=== PATIENT | female | born 1965 | race Hispanic/Latino ===

== ENCOUNTER 2017-07-11 22:06 | Observation (INO) | payer BC ==
--- NOTE | 2017-07-11 22:39 | ED PDOC ---
Arrival/HPI - General Chief Complaint: Chest Pain Time Seen by Provider: 07/11/17 22:19 Historian: Patient - History of Present Illness Narrative History of Present Illness (Text): 07/11/17 22:20 52 year old female, whose history includes Lupus, CO, cardiac stent, fibromyalgia, COPD, and asthma, presents to the Emergency department complaining of left arm pain that began 21 hours ago and left chest tightness with associated left hand numbness that began 3 hours ago. Patient also complains of dry mouth. Patient initially thought symptoms were a Lupus flareup yesterday but when symptoms persisted, patient decided to seek Emergency department evaluation. Patient reports taking Aspirin 81mg this morning. Patient flew in from [place] this morning. Patient denies any fever, chills, shortness of breath, nausea, vomiting, diarrhea, urinary symptoms, back pain, neck pain, headache, dizziness, trauma/injury, or any other complaints. Time/Duration: Other (21 hours, 3 hours) Symptom Onset: Sudden Symptom Course: Unchanged Activities at Onset: Rest Context: Home, Other (patient flew in from [facility] this morning) Past Medical History - Provider Review Nursing Documentation Reviewed: Yes - Hematological/Oncological Other/Comment: SLE - Psychiatric Hx Substance Use: No Family/Social History - Physician Review Nursing Documentation Reviewed: Yes Family/Social History: Unknown Family HX Smoking Status: y Hx Alcohol Use: Yes Frequency of alcohol use: Socially Hx Substance Use: No Allergies/Home Meds Allergies/Adverse Reactions: Allergies No Known Allergies Allergy (Verified 07/11/17 22:17) Home Medications: Home Meds Medication Instructions Recorded Confirmed Alendronate Sodium [Binosto] 70 mg PO QWK 07/11/17 07/11/17 Aspirin [Adult Low Dose Aspirin EC] 81 mg PO DAILY 07/11/17 07/11/17 Atorvastatin Calcium [Atorvastatin 40 mg PO HS 07/11/17 07/11/17 Calcium] Cholecalciferol (Vitamin D3) 1 cap PO DAILY 07/11/17 07/11/17 [Vitamin D3] Cyclobenzaprine HCl 10 mg PO PRN PRN 07/11/17 07/11/17 [Cyclobenzaprine HCl] Diltiazem HCl [Cartia Xt] 120 mg PO DAILY 07/11/17 07/11/17 Duloxetine HCl [Duloxetine HCl] 60 mg PO DAILY 07/11/17 07/11/17 Hydroxychloroquine Sulfate 200 mg PO DAILY 07/11/17 07/11/17 [Plaquenil] Meloxicam [Mobic] 15 mg PO DAILY 07/11/17 07/11/17 Omeprazole [Omeprazole] 20 mg PO BID 07/11/17 07/11/17 Review of Systems - Physician Review All systems were reviewed & negative as marked: Yes - Review of Systems Constitutional: absent: Fevers Respiratory: absent: SOB Gastrointestinal: absent: Nausea, Vomiting Neurological: absent: Dizziness Endocrine: absent: Diaphoresis Physical Exam - Physical Exam Narrative Physical Exam (Text): 07/11/17 22:56 Gen: NAD Head: NC Eyes: PERRL ENT: MMM Neck: Supple. Chest: No tenderness CV: Tachycardic rate Lungs: CTA b/l Abd: Soft, NT Back: No CVA tenderness Extremities: No swelling or tenderness Skin: No rash Neuro: Alert, no focal deficit Vital Signs Pulse Resp BP Pulse Ox 07/11/17 22:11 106 H 23 162/102 H 98 Medical Decision Making ED Course and Treatment: 07/11/17 22:50 Impression: 52 year old female presents to the Emergency department complaining of left arm pain and numbness and left chest tightness. Plan: -- CT scan of the chest -- Urinalysis, HCG qualitative -- Labs -- Aspirin -- Reassess and disposition Progress Notes: 07/12/17 01:41 EXAM:CT Angiography Chest With Intravenous Contrast FINDINGS: Pulmonary arteries: Unremarkable. No pulmonary embolism. Aorta: No acute findings. No thoracic aortic aneurysm. Lungs: Emphysematous changes are noted. No consolidation. Bibasilar atelectatic changes. Pleural space: Unremarkable. No significant effusion. No pneumothorax. Heart: Unremarkable. No cardiomegaly. No significant pericardial effusion. No evidence of RV dysfunction. Mediastinum: Small to moderate hiatal hernia. Bones/joints: No acute fracture. No dislocation. Soft tissues: Unremarkable. Lymph nodes: Unremarkable. No enlarged lymph nodes. Adrenals: 1.5 cm left adrenal nodule and 1 cm right adrenal nodule noted. IMPRESSION: No acute findings. Dr. Camp, medicine associate relations specialist, accepts patient to her service for chest pain observation. - Lab Interpretations Lab Results: 07/11/17 22:11 07/11/17 22:11 Lab Results 07/11/17 22:50: Urine Color Yellow, Urine Appearance Clear, Urine pH 6.0, Ur Specific [place] 1.020, Urine Protein Negative, Urine Glucose (UA) Negative, Urine Ketones Negative, Urine Blood Negative, Urine Nitrate Negative, Urine Bilirubin Negative, Urine Urobilinogen 0.2, Ur Leukocyte Esterase Negative, Urine HCG, Qual Negative 07/11/17 22:11: PT 11.2, INR 0.98, APTT 33.3 07/11/17 22:11: WBC 12.5 H, RBC 3.92, Hgb 12.5, Hct 36.9, MCV 94.1, MCH 31.9, MCHC 33.9, RDW 13.8, Plt Count 374, MPV 9.1, Gran % 61.3, Lymph % (Auto) 28.5, Kaufman % (Auto) 7.6 H, Eos % (Auto) 2.3, Baso % (Auto) 0.3, Gran # 7.63 H, Lymph # (Auto) 3.6 H, Kaufman # (Auto) 0.9 H, Eos # (Auto) 0.3, Baso # (Auto) 0.04 07/11/17 22:11: Sodium 142, Potassium 4.3, Chloride 105, Carbon Dioxide 27, Anion Gap 14, BUN 14, Creatinine 1.0, Est GFR ( Amer) > 60, Est GFR (Non- Af Amer) 58, Random Glucose 106, Calcium 9.8, Total Bilirubin 0.3, AST 28, ALT 26, Alkaline Phosphatase 97, Total Creatine Kinase 43, Troponin I < 0.01, NT-Pro -B Natriuret Pep 67.4, Total Protein 7.4, Albumin 4.1, Globulin 3.3, Albumin/ Globulin Ratio 1.2 - RAD Interpretation Radiology Orders: 07/11/17 22:27 ANGIO CHEST PE PROTOCOL [CT] Stat - Medication Orders Current Medication Orders: Discontinued Medications Acetaminophen (Tylenol 325mg Tab) 975 mg PO STAT STA Stop: 07/12/17 02:03 Last Admin: 07/12/17 02:03 Dose: 975 mg MAR Pain/Vitals Document 07/12/17 02:03 FERNANDO (Rec: 07/12/17 02:04 FERNANDO [id number]) Pain Reassessment Is This A Pain ReAssessment? Yes Aspirin (Aspirin) 325 mg PO STAT STA Stop: 07/11/17 22:28 Last Admin: 07/11/17 22:37 Dose: 325 mg Ketorolac Tromethamine (Toradol) 30 mg IVP STAT STA Stop: 07/11/17 23:18 Last Admin: 07/11/17 23:22 Dose: 30 mg MAR Pain Assessment Document 07/11/17 23:22 GRIS (Rec: 07/11/17 23:23 GRIS MARAVILLA-PC) Pain Reassessment Is this a pain reassessment? No Sleep Is patient sleeping during reassessment? No Presence of Pain Presence of Pain Yes Pain Scale Used Pain Scale Used Numeric Location Pain Location Body Site Chest Description Description Intermittent Intensity of Pain at present 7 IVP Administration Document 07/11/17 23:22 GRIS (Rec: 07/11/17 23:23 GRIS MARAVILLA-PC) Charges for Administration # of IVP Administrations 1 - Scribe Statement The provider has reviewed the documentation as recorded by the Scribprashant Shelby All medical record entries made by the Scribprashant were at my direction and personally dictated by me. I have reviewed the chart and agree that the record accurately reflects my personal performance of the history, physical exam, medical decision making, and the department course for this patient. I have also personally directed, reviewed, and agree with the discharge instructions and disposition. Disposition/Present on Arrival - Present on Arrival Any Indicators Present on Arrival: No History of DVT/PE: No History of Uncontrolled Diabetes: No Urinary Catheter: No History of Decub. Ulcer: No History Surgical Site Infection Following: None - Disposition Have Diagnosis and Disposition been Completed?: Yes Diagnosis: Chest pain Disposition: HOSPITALIZED Disposition Time: 01:44 Patient Plan: Observation, Telemetry Condition: FAIR Discharge Instructions (ExitCare): Chest Pain (ED) Referrals: Rosy Poole, [Primary Care Provider] - Follow up with primary Forms: CG Scholar (Ukrainian)
[2017-07-11 22:48] LABS: BASO # 0.04 K/mm3 (0.0-2.0); BASO % 0.3 % (0.0-3.0); EOS # 0.3 (0.0-0.7); EOS % 2.3 % (1.5-5.0); GRAN # 7.63 (1.4-6.5); GRAN % 61.3 % (50.0-68.0); HEMOGLOBIN 12.5 g/dL (12.0-16.0); LYMPH # 3.6 (1.2-3.4); LYMPH % 28.5 % (22.0-35.0); MEAN CELL VOLUME 94.1 fl (80.0-105.0); MEAN CORPUSCULAR HEMOGLOBIN 31.9 pg (25.0-35.0); MEAN CORPUSCULAR HGB CONC 33.9 g/dl (31.0-37.0); MEAN PLATELET VOLUME 9.1 fl (7.0-11.0); MONO # 0.9 (0.1-0.6); MONO % 7.6 % (1.0-6.0); RBC 3.92 10^6/uL (3.5-6.1); RED CELL DISTRIBUTION WIDTH 13.8 % (11.5-14.5); WHITE BLOOD COUNT 12.5 10^3/ul (4.5-11.0)
[2017-07-11 22:56] LABS: ALB/GLOB RATIO 1.2 (1.1-1.8); ALBUMIN 4.1 g/dL (3.0-4.8); ALT/SGPT 26 U/L (7-56); AST/SGOT 28 U/L (14-36); BLOOD UREA NITROGEN 14 mg/dL (7-21); CALCIUM 9.8 mg/dL (8.4-10.5); GFR AFRICAN-AMERICAN > 60; GFR NON-AFRICAN AMERICAN 58
[2017-07-11 22:57] LABS: INR 0.98 (0.93-1.08); PARTIAL THROMBOPLASTIN TIME 33.3 Seconds (25.1-36.5); PROTHROMBIN TIME 11.2 SECONDS (9.4-12.5)
[2017-07-11 23:07] LABS: B-TYPE NATRIURETIC PEPTIDE 67.4 pg/mL (0-450); TROPONIN I < 0.01 ng/mL
[2017-07-11 23:28] LABS: URINE BILIRUBIN NEGATIVE (NEGATIVE); URINE BLOOD NEGATIVE (NEGATIVE); URINE GLUCOSE (UA) NEGATIVE (NEGATIVE); URINE LEUKOCYTE ESTERASE NEGATIVE Leu/uL (NEGATIVE); URINE PROTEIN NEGATIVE mg/dL (<30 mg/dL); URINE UROBILINOGEN 0.2 E.U./dL (<1 E.U./dL)
[2017-07-11 23:31] LABS: URINE APPEARANCE CLEAR (CLEAR); URINE COLOR YELLOW (YELLOW)
[2017-07-11 23:33] LABS: HCG,QUALITATIVE URINE NEGATIVE (NEGATIVE)
[2017-07-11] MEDS ORDERED: Iodixanol 320 MG/ML 100 ML BOTTLE IV ONE (23:50)
--- NOTE | 2017-07-12 05:00 | CP.PCM.PN ---
Subjective - Date & Time of Evaluation Date of Evaluation: 07/12/17 Time of Evaluation: 04:56 - Subjective Subjective: Nurse calls and tells that patient has chest pain. Also numbness in left hand. Came in with chest pain. Earlier , she received toradol 30 mg IV and tylenol 975 mg po in the ER which helped her. I had ordered EKG, troponin, and Toradol 30 mg IV . Came to see patient.Toradol is just given. EKG: NSR, inverted t wave in V2 as previous EKG. Patient has no sob, no nausea, no sweating , no palpitation. States that she has numbness in left index and middle finger which goes up towards left shoulder and has muscle spasm in the precordial region. Medical record was reviewed. This 52 year old woman flew in from [place], complained of left arm pain and chest tightness,leukocytosis. Has PMH of Lupous, fibromyalgia, COPD, asthma,CAD, coronary stent placement. Objective - Vital Signs/Intake and Output Vital Signs (last 24 hours): Temp Pulse Resp BP Pulse Ox 109 H 18 146/78 99 07/12/17 02:07 07/12/17 02:07 07/12/17 02:07 07/12/17 02:07 - Labs Labs: PT 11.2 SECONDS (9.4-12.5) 07/11/17 22:11 INR 0.98 (0.93-1.08) 07/11/17 22:11 APTT 33.3 Seconds (25.1-36.5) 07/11/17 22:11 Last Vital Signs Temp Pulse 109 H 07/12/17 02:07 Resp 18 07/12/17 02:07 BP 146/78 07/12/17 02:07 Pulse Ox 99 07/12/17 02:07 Most Recent Lab Values WBC 12.5 10^3/ul (4.5-11.0) H 07/11/17 22:11 RBC 3.92 10^6/uL (3.5-6.1) 07/11/17 22:11 Hgb 12.5 g/dL (12.0-16.0) 07/11/17 22:11 Hct 36.9 % (36.0-48.0) 07/11/17 22:11 MCV 94.1 fl (80.0-105.0) 07/11/17 22:11 MCH 31.9 pg (25.0-35.0) 07/11/17 22:11 MCHC 33.9 g/dl (31.0-37.0) 07/11/17 22:11 RDW 13.8 % (11.5-14.5) 07/11/17 22:11 Plt Count 374 10^3/uL (120.0-450.0) 07/11/17 22:11 MPV 9.1 fl (7.0-11.0) 07/11/17 22:11 Gran % 61.3 % (50.0-68.0) 07/11/17 22:11 Lymph % (Auto) 28.5 % (22.0-35.0) 07/11/17 22:11 Callahan % (Auto) 7.6 % (1.0-6.0) H 07/11/17 22:11 Eos % (Auto) 2.3 % (1.5-5.0) 07/11/17 22:11 Baso % (Auto) 0.3 % (0.0-3.0) 07/11/17 22:11 Gran # 7.63 (1.4-6.5) H 07/11/17 22:11 Lymph # (Auto) 3.6 (1.2-3.4) H 07/11/17 22:11 Callahan # (Auto) 0.9 (0.1-0.6) H 07/11/17 22:11 Eos # (Auto) 0.3 (0.0-0.7) 07/11/17 22:11 Baso # (Auto) 0.04 K/mm3 (0.0-2.0) 07/11/17 22:11 PT 11.2 SECONDS (9.4-12.5) 07/11/17 22:11 INR 0.98 (0.93-1.08) 07/11/17 22:11 APTT 33.3 Seconds (25.1-36.5) 07/11/17 22:11 Sodium 142 mmol/L (132-148) 07/11/17 22:11 Potassium 4.3 mmol/L (3.6-5.0) 07/11/17 22:11 Chloride 105 mmol/L (98-107) 07/11/17 22:11 Carbon Dioxide 27 mmol/L (21-33) 07/11/17 22:11 Anion Gap 14 (10-20) 07/11/17 22:11 BUN 14 mg/dL (7-21) 07/11/17 22:11 Creatinine 1.0 mg/dl (0.7-1.2) 07/11/17 22:11 Est GFR ( Amer) > 60 07/11/17 22:11 Est GFR (Non-Af Amer) 58 07/11/17 22:11 Random Glucose 106 mg/dL (70-110) 07/11/17 22:11 Calcium 9.8 mg/dL (8.4-10.5) 07/11/17 22:11 Total Bilirubin 0.3 mg/dL (0.2-1.3) 07/11/17 22:11 AST 28 U/L (14-36) 07/11/17 22:11 ALT 26 U/L (7-56) 07/11/17 22:11 Alkaline Phosphatase 97 U/L (38-126) 07/11/17 22:11 Total Creatine Kinase 43 U/L (35-230) 07/11/17 22:11 Troponin I < 0.01 ng/mL 07/11/17 22:11 NT-Pro-B Natriuret Pep 67.4 pg/mL (0-450) 07/11/17 22:11 Total Protein 7.4 g/dL (5.8-8.3) 07/11/17 22:11 Albumin 4.1 g/dL (3.0-4.8) 07/11/17 22:11 Globulin 3.3 gm/dL 07/11/17 22:11 Albumin/Globulin Ratio 1.2 (1.1-1.8) 07/11/17 22:11 Urine Color Yellow (YELLOW) 07/11/17 22:50 Urine Appearance Clear (CLEAR) 07/11/17 22:50 Urine pH 6.0 (4.7-8.0) 07/11/17 22:50 Ur Specific Lenore 1.020 (1.005-1.035) 07/11/17 22:50 Urine Protein Negative mg/dL (<30 mg/dL) 07/11/17 22:50 Urine Glucose (UA) Negative mg/dL (NEGATIVE) 07/11/17 22:50 Urine Ketones Negative mg/dL (NEGATIVE) 07/11/17 22:50 Urine Blood Negative (NEGATIVE) 07/11/17 22:50 Urine Nitrate Negative (NEGATIVE) 07/11/17 22:50 Urine Bilirubin Negative (NEGATIVE) 07/11/17 22:50 Urine Urobilinogen 0.2 E.U./dL (<1 E.U./dL) 07/11/17 22:50 Ur Leukocyte Esterase Negative Ankita/uL (NEGATIVE) 07/11/17 22:50 Urine HCG, Qual Negative (NEGATIVE) 07/11/17 22:50 - Constitutional Appears: Well, No Acute Distress - Head Exam Head Exam: ATRAUMATIC, NORMAL INSPECTION, NORMOCEPHALIC - Eye Exam Eye Exam: Normal appearance - ENT Exam ENT Exam: Normal External Ear Exam - Neck Exam Neck Exam: Normal Inspection - Respiratory Exam Respiratory Exam: NORMAL BREATHING PATTERN Additional comments: Precordial localized tenderness positive. - Cardiovascular Exam Cardiovascular Exam: JVD, +S1 (Normal.), +S2 (Normal.). absent: Diastolic murmur - GI/Abdominal Exam GI & Abdominal Exam: absent: Distended - Rectal Exam Rectal Exam: Deferred - Exam Additional comments: Deferred. - Extremities Exam Extremities Exam: Normal Inspection - Back Exam Back Exam: NORMAL INSPECTION - Neurological Exam Neurological Exam: Alert, Awake, Oriented x3 - Psychiatric Exam Psychiatric exam: Normal Affect, Normal Mood - Skin Skin Exam: Normal Color Assessment and Plan - Assessment and Plan (Free Text) Assessment: Chest pain. Left hand numbness. Lupus. Asthma. COPD. Leukocytosis. Fibromyalgia. CAD. History cardiac stent. Plan: Toradol 30 mg IV x 1. EKG stat.-----> NSR, inverted small t wave in V2 same as in previous EKG from ER. Troponin stat. Continue present management. Cardiology follow up.
[2017-07-12 06:36] VITALS: RESP 19; TEMP 97.8; O2SAT 96
--- NOTE | 2017-07-12 09:27 | CT ---
PROCEDURE: CT Chest with contrast (Pulmonary Angiogram) HISTORY: chest pain, tachycardia, flight COMPARISON: None available. TECHNIQUE: Axial computed tomography images were obtained of the chest in the pulmonary arterial phase of enhancement. Coronal and sagittal reformatted images were created and reviewed. Maximum intensity projection (MIP) reconstructed images in the following planes: Coronal and sagittal projections Intravenous contrast dose: 100 cc Omnipaque 320 Mean Hounsfield unit values in the main pulmonary artery: 273.62 Radiation dose: Total exam DLP = 234.78 mGy-cm. This CT exam was performed using one or more of the following dose reduction techniques: Automated exposure control, adjustment of the mA and/or kV according to patient size, and/or use of iterative reconstruction technique. FINDINGS: PULMONARY ARTERIES: Unremarkable. No pulmonary embolism. AORTA: No acute findings. No thoracic aortic aneurysm. LUNGS: Unremarkable. NoCentrilobular emphysematous changes, mild. Faint focal airspace disease right middle lobe. Dependent atelectasis both lower lobes, mild in degree/ severity. Nodule, mass or pulmonary consolidation. PLEURAL SPACES: Unremarkable. No effusion or pneuomothorax. HEART: Unremarkable. No cardiomegaly. No significant pericardial effusion. LYMPH NODES: No lymphadenopathy. BONES, CHEST WALL: Unremarkable. No fracture or destructive lesion OTHER FINDINGS: Small hiatal hernia. IMPRESSION: Unremarkable CT pulmonary angiogram. No pulmonary embolus. Additional benign and/or incidental findings described above. Concordant results (preliminary interpretation) provided by [facility]. Procedure Completed: 00:59 Preliminary ([facility]) Report: Dictated and Authenticated: 01:49 Final Interpretation: 09:25 July 12, 2017.
[2017-07-12] MEDS ORDERED: Cholecalciferol 1,000 INTLU TAB PO SCH (10:00)
[2017-07-12] MEDS ORDERED: ALENDRONATE SODIUM 70 MG PO SCH (10:00)
[2017-07-12] MEDS ORDERED: diltiaZEM 120 mg/24 Hours CD Cap PO SCH (10:00)
[2017-07-12 10:23] VITALS: BP 145/87; PULSE 85
--- NOTE | 2017-07-12 14:49 | CARD ---
APPROVED REPORT EKG Measurement Heart [id number] <Conclusion> Normal sinus rhythm Normal ECG
--- NOTE | 2017-07-12 15:01 | CARD ---
APPROVED REPORT EKG Measurement Heart [id number] <Conclusion> Sinus tachycardia Nonspecific ST and T wave abnormality Abnormal ECG
[2017-07-13] MEDS ORDERED: Pantoprazole 40 mg EC Tab PO SCH (10:00)
--- NOTE | 2017-07-13 21:11 | HP ---
DATE OF EXAM: 07/12/2017 The patient was seen and examined on 07/12/2017. CHIEF COMPLAINT: Chest pain. HISTORY OF PRESENT ILLNESS: Ms. Maine Sevilla is a 52-year-old female with history of lupus, OR, cardiac stent, fibromyalgia, COPD and asthma who came to the emergency department complaining of left arm pain that began 21 hours ago and left chest tightness associated with left hand numbness that began 3 hours ago. Patient also is complaining of dry mouth. Patient initially thought symptoms were due to lupus flare-up, but when symptoms persisted the patient decided to come in the emergency room. Patient was taking aspirin 81 mg that morning. [facility] [place] [facility] No fever, no chills. I saw the patient in her room, that moment still having chest pain. No nausea, vomiting or diarrhea. No back pain, no neck pain, no headache, no dizziness. No tremor, injury or other complaints. PAST MEDICAL HISTORY: As above. Lupus, coronary artery disease, cardiac stenting, COPD, asthma. FAMILY HISTORY: Father and mother noncontributory. HABITS: Smoking, yes. Alcohol, yes socially as per patient. Substance abuse, no. ALLERGIES: PATIENT IS NOT ALLERGIC WITH ANY MEDICATIONS. HOME MEDICATIONS: Alendronate, aspirin, atorvastatin, vitamin D, cyclobenzaprine, Cartia, duloxetine, Plaquenil, Mobic, and omeprazole. REVIEW OF SYSTEMS: Patient was seen and examined in her room on the bedside, that moment still has a little bit pain in the left side of the chest going to axilla. Cardiac enzymes done. No fever, no chills. No nausea, vomiting, or diarrhea. No hematuria or hematochezia. No swelling of the legs. No headache or dizziness. Feeling fatigued and tired. PHYSICAL EXAMINATION: VITAL SIGNS: Temperature 97.8; pulse 93, 86, 100, 85; blood pressure 145/87; respiratory rate 19. HEENT: Head: Normocephalic and atraumatic. Eyes: PERRLA. Extraocular muscles intact. Conjunctivae clear. Nose patent. Mucous membranes are moist. NECK: Supple. No carotid bruit. No JVD or thyromegaly. CHEST: Bilaterally symmetrical. HEART: S1 and S2 positive. LUNGS: Clear to auscultation. ABDOMEN: Soft. Bowel sounds present. No organomegaly. EXTREMITIES: No edema, no cyanosis. NEUROLOGICAL: The patient is awake and alert. Moving all four extremities. No focal deficits. LABORATORY DATA: White blood cells is 12.5, hemoglobin 12.5, hematocrit 36.9, platelets 374. Sodium 142, potassium 4.3, BUN 14, creatinine 1.0, glucose 106. Troponin done x2 is less than 0.01. Urine is clear. ASSESSMENT AND PLAN: Ms. Maine Sevlila is a 52-year-old lady with leukocytosis came with chest pain, history of lupus, myocardial infarction, cardiac stenting, fibromyalgia, chronic obstructive pulmonary disease and asthma. We did cardiac enzymes x2, it was negative. Cardiology consults called. CAT scan of the chest is done, unremarkable chest scan. Pulmonary angiogram, no pulmonary embolism. Consult called with Cardiology. Plan was maybe patient needs catheterization because history of myocardial infarction and cardiac stent. Patient was seen by me and seen by house physician Dr. Aceves also because of the chest pain. She received tramadol and Tylenol that helped. EKG was repeated. Toradol IV given. All medical records reviewed. Patient flew from [place] over here. Education done. Lifestyle modifications and compliance discussed with the patient. Length of time discussion done that she needs cardiac evaluation. We will do TSH and possibly lipid profile. We will follow up according to senior management consultant's suggestions. Flora Camp MD : 07/13/2017 9:38:25
--- NOTE | 2017-07-14 06:50 | DS ---
SUMMARY: Patient was admitted on 07/11/2017, eloped on 07/12/2017 without notice of anybody. Nurse called me, informed me that patient has already eloped. I saw patient only once on 07/12/2017 and I did history and physical for 07/12/2017. Flora Camp MD
== END 2017-07-12 13:05 | disposition left against medical advice (07) ==
LOC: ED 22:06 → ERH 07-12 02:04 → 3RSO 07-12 03:53
PROVIDERS: ADMIT Internal Medicine; ATTEND Internal Medicine
DX: R07.9 Chest pain, unspecified (principal); J44.9 Chronic obstructive pulmonary disease, unspecified; I25.10 Atherosclerotic heart disease of native coronary artery without angina pectoris; M32.9 Systemic lupus erythematosus, unspecified; I25.2 Old myocardial infarction; M62.838 Other muscle spasm; D72.829 Elevated white blood cell count, unspecified; R20.0 Anesthesia of skin; Z95.5 Presence of coronary angioplasty implant and graft
CPT/HCPCS: 36415; 71275; 80053; 81003; 82550; 83880; 84484; 84703; 85025; 85610; 85730; 93005; 96374; 99285; G0378; J1885; Q9967